=== PATIENT | male | born 1975 | race Caucasian/White ===

== ENCOUNTER 2020-07-14 06:00 | Day surgery (SDC) | payer MEDICAID ==
[~2020-07-14] VITALS: Ht 175.3 cm; Wt 78.9 kg
[2020-07-14] VITALS (12 sets, daily range): BP systolic 62–160; BP diastolic 30–103
[2020-07-14] MEDS ORDERED: PROM25I RC (06:28)
[2020-07-14] MEDS ORDERED: ONDA8TAB12 PO (06:28)
[2020-07-14] MEDS ORDERED: BACL10TA PO (06:28)
[2020-07-14] MEDS ORDERED: HYDR-4064 PO (06:28)
--- NOTE | 2020-07-14 06:45 | NUR ---
PT C/O OF NAUSEA GAVE HIM ALCOHOL SWABS TO SMELL ---IV STARTED --ZOFRAN ADMINISTRED HILDA LINTON
[2020-07-14] MEDS ORDERED: ONDANSETRON HCL 4 MG/2 ML VIAL ONE (06:47)
[2020-07-14] MEDS ORDERED: SODIUM CHLORIDE 0.9% 1000ML 1,000 ML IV ONE (06:54)
[2020-07-14] MEDS ORDERED: UMEC1DIS IH (07:05)
[2020-07-14] MEDS ORDERED: ALBU90AE2 IH (07:05)
[2020-07-14] MEDS ORDERED: LIDOCAINE HCL 2% 20ML ONE (07:20)
[2020-07-14] MEDS ORDERED: PROPOFOL 10 MG/ML 20ML VIAL IV ONE ×3 (07:20→08:38)
[2020-07-14] MEDS ORDERED: MIDAZOLAM HCL 1 MG/ML 2ML VIAL ONE (07:21)
[2020-07-14] MEDS ORDERED: GLYCOPYRROLATE 0.2 MG/ML 5 ML VIAL ONE (07:25)
[2020-07-14] MEDS ORDERED: SUCCINYLCHOLINE CHLORIDE 20 MG/ML 10 ML VIAL ONE (07:25)
== END 2020-07-14 10:20 | disposition home or self-care (01) ==
LOC: DAH 06:00 → ENDO 06:00
PROVIDERS: ATTEND Internal Medicine
DX: K85.80 Other acute pancreatitis without necrosis or infection (principal); R10.13 Epigastric pain; K26.9 Duodenal ulcer, unspecified as acute or chronic, without hemorrhage or perforation; K29.70 Gastritis, unspecified, without bleeding; J44.9 Chronic obstructive pulmonary disease, unspecified; K21.00 Gastro-esophageal reflux disease with esophagitis, without bleeding; K57.30 Diverticulosis of large intestine without perforation or abscess without bleeding; K44.9 Diaphragmatic hernia without obstruction or gangrene; G89.29 Other chronic pain; M54.9 Dorsalgia, unspecified; F41.9 Anxiety disorder, unspecified; F32.9 Major depressive disorder, single episode, unspecified; Z90.49 Acquired absence of other specified parts of digestive tract; Z79.899 Other long term (current) drug therapy; Z20.828 Contact with and (suspected) exposure to other viral communicable diseases
CPT/HCPCS: 36415; 43237; 43239; A4215; A4221; A4606; A4620; A4649; A4657 ×3; A4663; C9803; J0330; J2250; J2405; J2704 ×3; J3490 ×2; J7030; U0003